=== PATIENT | male | born 1965 | race Caucasian/White ===

== ENCOUNTER 2017-11-01 14:35 | Outpatient (CLI) | payer OTHER ==
--- NOTE | 2017-11-01 18:04 | Diagnostic Imaging Report ---
AKBAR MENDOZA [facility] [id number] [facility] [address] [place], [place]. [address] Report Submission Date: November 01, 2017 3:02:38 PM CDT Patient Study Name: ELISABET AHMADI Date: November 01, 2017 2:39:59 PM CDT Modality Type: DX Gender: M Description: CHEST : 63 Institution: [facility] Physician: AKBAR MENDOZA Examination: PA and lateral chest. History: Evaluate lung pulido. PT STATES THAT HE HAS AN ELEVATED TEMPERATURE. PT STATES THAT HE HAS NOT HAD ANY CHEST SURGERIES AND NO KNOWN HEART OR LUNG PROBLEMS. SMOKER 2 PPD. (Hx) Findings: PA lateral chest demonstrate a normal cardiac and mediastinal silhouette. Minimal calcifications involving the aortic arch. No focal infiltrate. No blunting of the costophrenic margins. Osseous structures are appropriate for age. Impression: No acute pulmonary process. Electronically signed on November 01, 2017 3:02:38 PM CDT by: Collin WAGNER
== END 2017-11-01 14:36 ==
LOC: RAD 14:35
PROVIDERS: ATTEND Family Medicine
DX: R50.9 Fever, unspecified (principal)
CPT/HCPCS: 71046